=== PATIENT | male | born 1970 | race African-American/Black ===

== ENCOUNTER 2018-04-28 20:52 | Inpatient (IN) | payer SELFPAY ==
[~2018-04-28] VITALS: Ht 185.4 cm; Wt 118.8 kg
[2018-04-28 22:47] LABS: BASOPHILS % 0.7 % (0.0-2.0); HEMATOCRIT. 46.3 % (42.0-52.0); HEMOGLOBIN. 15.7 g/dL (14.0-18.0); LYMPHOCYTES % 16.5 % (20.0-50.0); MEAN CORPUSCULAR HEMOGLOBIN 30.1 pg (28.0-32.0); MEAN PLATELET VOLUME 8.5 fl (7.4-10.4); MONOCYTES % 4.7 % (2.0-8.0); NEUTROPHILS % 77.1 % (40.0-76.0); PLATELET 252 x1000/uL (130-400); RED BLOOD CELL COUNT 5.21 mill/uL (4.7-6.1); RED CELL DISTRIBUTION WIDTH 14.6 % (11.6-14.6)
[2018-04-28 22:49] LABS: CHLORIDE 107 mEq/L (98-107)
[2018-04-28 22:53] LABS: ETHANOL BLOOD < 10 mg/dL
[2018-04-28 23:34] LABS: CLARITY URINE CLEAR (CLEAR); COLOR URINE YELLOW (YELLOW); KETONES URINE TRACE (NEGATIVE); LEUKOCYTE ESTERASE URINE NEGATIVE (NEGATIVE); NITRITE URINE NEGATIVE (NEGATIVE); OCCULT BLOOD URINE NEGATIVE (NEGATIVE); PH URINE 5.5 (4.5-8.0); PROTEIN URINE 1+ (NEGATIVE); SPECIFIC GRAVITY URINE 1.028 (1.005-1.030)
[2018-04-29 00:03] LABS: CANNABINOID URINE SCREEN NEGATIVE (NEGATIVE); OPIATES URINE SCREEN NEGATIVE (NEGATIVE); PHENCYCLIDINE URINE SCREEN NEGATIVE (NEGATIVE)
[2018-04-29 00:04] LABS: *AMPHETAMINES SCREEN URINE NEGATIVE (NEGATIVE); *BARBITURATES SCREEN URINE NEGATIVE (NEGATIVE); *BENZODIAZEPINES SCREEN URINE NEGATIVE (NEGATIVE); *COCAINE SCREEN URINE NEGATIVE (NEGATIVE); METHADONE URINE SCREEN NEGATIVE (NEGATIVE)
[2018-04-29 08:10] VITALS: BP 162/108
[2018-04-29] MEDS ORDERED: HYDROCODONE/ACETAMINOPHEN 5/325MG TABLET PO PRN (12:30)
[2018-04-29] MEDS ORDERED: ONDANSETRON HCL 4MG/2ML VIAL IV PRN (12:30)
[2018-04-29] MEDS: ACETAMINOPHEN 325MG TABLET PO PRN (13:06)
[2018-04-29] MEDS: CLONIDINE 0.1MG TABLET PO PRN (13:07)
[2018-04-29 16:00] VITALS: BP 124/65
[2018-04-29 20:00] VITALS: BP 147/93
[2018-04-30 00:01] VITALS: BP 139/91
[2018-04-30 04:00] VITALS: BP 137/96
[2018-04-30 06:56] LABS: BASOPHILS % 0.4 % (0.0-2.0); EOSINOPHILS % 3.3 % (0.0-5.0); HEMATOCRIT. 44.1 % (42.0-52.0); HEMOGLOBIN. 14.8 g/dL (14.0-18.0); LYMPHOCYTES % 33.7 % (20.0-50.0); MEAN CORPUSCULAR HEMOGLOBIN 30.3 pg (28.0-32.0); MEAN CORPUSCULAR VOLUME 90.1 fL (80.0-94.0); MEAN PLATELET VOLUME 8.7 fl (7.4-10.4); MONOCYTES % 6.7 % (2.0-8.0); NEUTROPHILS % 55.9 % (40.0-76.0); PLATELET 232 x1000/uL (130-400); RED BLOOD CELL COUNT 4.89 mill/uL (4.7-6.1); RED CELL DISTRIBUTION WIDTH 14.5 % (11.6-14.6)
[2018-04-30 07:29] LABS: CHLORIDE 107 mEq/L (98-107)
[2018-04-30 07:37] LABS: LDL CHOLESTEROL 130 mg/dL (5-100)
[2018-04-30 07:38] LABS: HDL CHOLESTEROL 42 mg/dL (40-59)
[2018-04-30 08:00] VITALS: BP 145/97
[2018-04-30] MEDS: ACETAMINOPHEN 325MG TABLET PO PRN (09:06)
[2018-04-30] MEDS: CLONIDINE 0.1MG TABLET PO PRN (09:21)
[2018-04-30 12:00] VITALS: BP 125/83
[2018-04-30] MEDS ORDERED: ASPIRIN 81MG EC TABLET PO SCH (13:00)
[2018-04-30] MEDS ORDERED: AMLODIPINE 10MG TABLET PO SCH (13:00)
[2018-04-30] MEDS ORDERED: LISINOPRIL 10MG TABLET PO SCH (13:00)
[2018-04-30 15:25] VITALS: BP 106/72
[2018-04-30 16:00] VITALS: BP 106/72
== END 2018-04-30 17:40 | disposition home or self-care (01) | DRG 52 ==
LOC: ER 20:52 → 7WST 04-29 00:19 → EDBEDREQ 04-29 00:23 → ENRESERV 04-29 07:08
PROVIDERS: ADMIT Hospitalist; ATTEND Hospitalist
DX: G93.40 Encephalopathy, unspecified (principal); I10 Essential (primary) hypertension
CPT/HCPCS: 36415; 70450; 71045; 80053; 80061; 80305; 81003; 82962; 85025; 93005; 99285; G0482